=== PATIENT | female | born 1970 | race Caucasian/White ===

== ENCOUNTER 2023-02-02 17:08 | Inpatient (IN) | payer OTHER, SELFPAY ==
[2023-02-02] MEDS: diphenhydrAMINE HCL 50 MG/ML VIAL IM (17:25)
[2023-02-02] MEDS: LORazepam 2 MG/ML VIAL IM (17:25)
[2023-02-02] MEDS: Haloperidol Lactate 5 MG/ML VIAL IM (17:25)
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
[2023-02-02 17:28] VITALS: BP 128/94; PULSE 130; O2SAT 97; BMI 24.2
--- NOTE | 2023-02-02 17:30 | PC.NURSE ---
patient uncooperative at the time of arrival. Ed provider at the bedside. ordered IM medication.
[2023-02-02 18:00] VITALS: BP 121/69; PULSE 103; RESP 18; TEMP 37.1; O2SAT 97
--- NOTE | 2023-02-02 18:13 | PC.NURSE ---
patient now cooperative with staff. VSS. will CTM
[2023-02-02 18:23] LABS: MANUAL DIFF FLAG NO
[2023-02-02 18:41] LABS: Basophils Percent Auto 0.4 % (0-2); Eosinophils Percent Auto 0.3 % (0-4); Hematocrit 42.3 % (37.0-47.0); Imm Gran Abs Auto 0.03 X10*3/uL (0.00-0.03); Imm Gran Pct Auto 0.3 % (0.0-0.4); Lymphocytes Absolute Auto 2.1 X10*3/uL (1.2-4.9); Lymphocytes Percent Auto 22.8 % (20-40); Mean Corpuscular HGB Conc 33.1 g/dl (31.0-35.0); Mean Corpuscular Volume 93.6 fL (80.0-98.0); Mean Platelet Volume 10.3 fL (9.4-12.3); Monocytes Absolute Auto 0.8 X10*3/uL (0.1-1.2); Monocytes Percent Auto 8.9 % (2-11); Neutrophils Absolute Auto 6.3 x10*3/uL (2.0-8.3); Neutrophils Percent Auto 67.3 % (45-73); Platelet Count 264 X10*3/uL (160-400); Red Blood Count 4.52 X10*6/uL (4.20-5.50); Red Cell Distribution Width 13.2 % (11.0-16.0); White Blood Count 9.3 X10*3/uL (4.8-10.8)
[2023-02-02 18:48] LABS: COVID-19 Test Negative (Negative); IDNOW Serial# BCCEAD1C
[2023-02-02 19:02] LABS: Alanine Aminotransferase 23 U/L (0-31); Albumin Level 4.2 g/dL (3.5-5.0); Alkaline Phosphatase 50 U/L (39-117); Anion Gap 16 (12-20); Aspartate Amino Transferase 23 U/L (5-31); Bilirubin Total 0.2 mg/dL (0.0-1.0); Blood Urea Nitrogen 6 mg/dL (9-16); Calcium 9.2 mg/dL (8.4-10.2); Carbon Dioxide 22 mmol/L (22-29); Chloride 107 mmol/L (96-108); Estimated Glomerular Filt Rate > 60; Ethanol 44 mg/dL; Glucose Random 115 mg/dL (60-115); Potassium 3.9 mmol/L (3.3-5.1); Sodium 141 mmol/L (135-145); Total Protein 6.2 g/dL (6.5-8.0)
--- NOTE | 2023-02-03 06:03 | PC.NURSE ---
Patient slept through evening an night, patient S/P restraint with + effect, no distress observed/reported, med rec completed/patient is not on any home medication, asymptomatic of ETOH withdrawal at this time, PRN ativan 2 mg Q 2 hrs available for withdrawal, care team pending evaluation, pending urine sample, will continue to monitor.
[2023-02-03 06:28] LABS: Appearance Urine Clear; Color Urine Yellow; Glucose Urine UA Negative (Negative); Leukocyte Esterase Urine Small (1+) (Negative); Nitrite Urine Negative (Negative); PH 5.5 (5.0-9.0); Specific Gravity - Urine 1.015 (1.005-1.025); UMIC TRIGGER UA YES; Urine Blood Negative (Negative); Urine Ketones Negative (Negative); Urine Protein Negative (Neg-Trace)
[2023-02-03 06:32] VITALS: BP 137/67; PULSE 100; RESP 16; TEMP 36.3; O2SAT 99
[2023-02-03 06:38] LABS: Amphetamine Screen Urine Not Detected (Not Detect); Barbiturates, Urine Not Detected (Not Detect); Benzodiazepines Screen Urine Not Detected (Not Detect); Cannabinoid Screen Urine POSITIVE (Not Detect); Cocaine Screen Urine Not Detected (Not Detect); Fentanyl, urine Not Detected (Not Detect); Opiate Screen Urine Not Detected (Not Detect); Phencyclidine Screen Urine Not Detected (Not Detect)
[2023-02-03 06:40] LABS: Bacteria Urine Trace (None Seen); RBC Urine 0-2 /HPF (0-2); WBC Urine 0-5 /HPF (0-5)
--- NOTE | 2023-02-03 14:02 | ECG_ITS ---
Test Reason : MED CLEARENCE Blood Pressure : / mmHG Vent. Rate : 090 BPM Atrial Rate : 090 BPM P-R Int : 138 ms QRS Dur : 082 ms QT Int : 356 ms P-R-T Axes : 039 064 017 degrees QTc Int : 435 ms Normal sinus rhythm Normal ECG No previous ECGs available Referred By: Allen Morales Electronically Signed By:Cornelio Sam
[2023-02-03 14:11] VITALS: BP 131/76; PULSE 91; RESP 16; O2SAT 97
[2023-02-03 21:48] VITALS: BMI 23.1
[2023-02-03 22:14] VITALS: BP 122/62; PULSE 83; RESP 16; TEMP 36.6; O2SAT 97
--- NOTE | 2023-02-03 22:17 | PC.ADMIT ---
Leti was admitted to at 1914 via WC from ED, CV signed. Psychiatric diagnosis unspecified bipolar and related disorder with current depressive episode, [facility] goals are safety, mood stabilization, medication management,and discharge plan to link with community provider. No significant medical diagnosis. Covid test negative 02/02/23. Plan Of Care goals Unit tour, sharps/belongings check completed by counselor. Leti was cooperative with admission assessment. Alert/ oriented x 3. Denied current SI/HI/AVH. Currently verbalizes feeling safe on the unit, she verbalized that she is capable, able and willing to contact staff for assistance with any changes or thoughts of self harm/not feeling safe. She presents as hyperverbal and expansive, with disorganized, tangential thought processes. Denies sleep or appetite disturbance. Currently on every 2 hour CIWA, score has been 0 x 2. She request not to be awakened every 2 hours if she is asleep. Last drink was prior to admission, presented to ED BAL 44. Required medication restraint and physical hold while in the ED. Tox screen positive for cannabis. Leti is ad-alice with steady gait, independent with ADL's, declined HS Depakote stating she is not in need of a mood stabilizer. Requested and given 3 day notice to sign which is up for resolution on 02/07/23. Currently laying in bed in no acute distress. POC initiated, standard 15 min unit safety observation.
--- NOTE | 2023-02-04 00:22 | PC.NURSE ---
CIWA refusal-upon admission reported to assigned RN refusal to be woken up for assessment. observed sleeping at this time. respirations even and non labored. no distress noted.
--- NOTE | 2023-02-04 06:53 | PC.NURSE ---
0600 CIWA done at this tiime. refused VS but did allow for assessment and questions. score 1 patient stated ''i smoke a lot of weed, I'm not an alcoholic''
--- NOTE | 2023-02-04 08:12 | HO.PSYADMNOT ---
HPI Date of Service: 02/04/23 Chief Complaint: manic, aggressive Sources of Information: patient interviewed, chart reviewed and crisis/core team assessment reviewed HPI Subjective Notes: Beth Warning and Conditional Voluntary Medical Evaluation Reviewed: Yes Diagnostics Vital Signs (24Hr): Vital Signs - 24 hr 02/03/23 14:11 02/03/23 22:14 Temperature 97.9 F Pulse Rate 91 83 Respiratory Rate 16 16 Blood Pressure 131/76 122/62 Pulse Oximetry 97 97 Oxygen Delivery Method Room Air Room Air BMI result Body Mass Index 23.1 Labs 02/02/23 18:08 02/02/23 18:08 Labs: Laboratory Results - last 48 hr 02/02/23 02/02/23 02/02/23 18:08 18:08 18:10 WBC 9.3 RBC 4.52 Hgb 14.0 Hct 42.3 MCV 93.6 MCH 31.0 MCHC 33.1 RDW 13.2 Plt Count 264 MPV 10.3 Immature Gran % (Auto) 0.3 Neut % (Auto) 67.3 Lymph % (Auto) 22.8 [place] % (Auto) 8.9 Eos % (Auto) 0.3 Baso % (Auto) 0.4 Lymph # (Auto) 2.1 [place] # (Auto) 0.8 Eos # (Auto) 0.0 Baso # (Auto) 0.0 Abs Immat Gran (auto) 0.03 Absolute Neuts (auto) 6.3 Absolute Nucleated RBC 0.000 Nucleated RBC % (auto) 0.0 Sodium 141 Potassium 3.9 Chloride 107 Carbon Dioxide 22 Anion Gap 16 BUN 6 L Creatinine 0.81 Estim Creat Clear Calc 76.0 Estimated GFR > 60 Random Glucose 115 Calcium 9.2 Total Bilirubin 0.2 AST 23 ALT 23 Alkaline Phosphatase 50 Total Protein 6.2 L Albumin 4.2 Urine Color Urine Appearance Urine pH Ur Specific [place] Urine Protein Urine Glucose (UA) Urine Ketones Urine Blood Urine Nitrite Ur Leukocyte Esterase Urine RBC Urine WBC Ur Squamous Epith Cells Urine Bacteria Hyaline Casts Urine Opiates Screen Urine Fentanyl Screen Ur Barbiturates Screen Ur Phencyclidine Scrn Ur Amphetamines Screen U Benzodiazepines Scrn Urine Cocaine Screen U Marijuana (THC) Screen Ethyl Alcohol 44 COVID-19 ([facility]) Negative COVID-19 Clin Com See Note 02/03/23 02/03/23 06:22 06:22 WBC RBC Hgb Hct MCV MCH MCHC RDW Plt Count MPV Immature Gran % (Auto) Neut % (Auto) Lymph % (Auto) [place] % (Auto) Eos % (Auto) Baso % (Auto) Lymph # (Auto) [place] # (Auto) Eos # (Auto) Baso # (Auto) Abs Immat Gran (auto) Absolute Neuts (auto) Absolute Nucleated RBC Nucleated RBC % (auto) Sodium Potassium Chloride Carbon Dioxide Anion Gap BUN Creatinine Estim Creat Clear Calc Estimated GFR Random Glucose Calcium Total Bilirubin AST ALT Alkaline Phosphatase Total Protein Albumin Urine Color Yellow Urine Appearance Clear Urine pH 5.5 Ur Specific [place] 1.015 Urine Protein Negative Urine Glucose (UA) Negative Urine Ketones Negative Urine Blood Negative Urine Nitrite Negative Ur Leukocyte Esterase Small (1+) H Urine RBC 0-2 Urine WBC 0-5 Ur Squamous Epith Cells 3-5 Urine Bacteria Trace Hyaline Casts 3-5 Urine Opiates Screen Not Detected Urine Fentanyl Screen Not Detected Ur Barbiturates Screen Not Detected Ur Phencyclidine Scrn Not Detected Ur Amphetamines Screen Not Detected U Benzodiazepines Scrn Not Detected Urine Cocaine Screen Not Detected U Marijuana (THC) Screen POSITIVE H Ethyl Alcohol COVID-19 ([facility]) COVID-19 Clin Com Meds/Allergies Meds Home Medications Medication Instructions Recorded Confirmed Type No Known Home Meds 02/02/23 02/02/23 History Allergies Allergies Allergy/AdvReac Type Severity Reaction Status Date / Time No Known Allergies Allergy Verified 02/02/23 17:53 Assessment & Plan Statement Statement: I have reviewed the history and physical and performed a pertinent examination on my patient. No changes have occurred unless specified. If the History and Physical was not performed prior to admission, the Hospitalist's service will be consulted for completing the admission physical. Time Spent With Patient Time: Total time managing care of this patient today ____ minutes.
[2023-02-04 09:12] VITALS: BP 138/63; PULSE 93; RESP 16; TEMP 36.9; O2SAT 97
[2023-02-04] MEDS: Folic Acid 1 MG TABLET PO (09:14)
[2023-02-04] MEDS: Multivitamin TABLET 1 TAB PO (09:14)
[2023-02-04] MEDS: Thiamine HCL 100 MG TABLET PO (09:14)
[2023-02-04 10:30] VITALS: BP 147/78; PULSE 93; RESP 18; TEMP 36.6; O2SAT 97
[2023-02-04 12:11] VITALS: BP 131/72; PULSE 88; RESP 16; TEMP 36.6; O2SAT 97
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
[2023-02-04 16:13] VITALS: BP 143/79; PULSE 94; RESP 18; TEMP 36.6; O2SAT 97
[2023-02-04 20:00] VITALS: BP 129/68; PULSE 83; RESP 16; TEMP 36.7; O2SAT 96
[2023-02-05 08:36] VITALS: BP 113/56; PULSE 98; RESP 16; TEMP 36.9; O2SAT 96
--- NOTE | 2023-03-17 13:41 | P.DS_ITS ---
DS: Providers Provider Date of Service: 02/05/23 Date of admission: 02/03/23 18:30 Date of discharge: 02/05/23 Primary care physician: Abhijit Hand MD DS: Diagnosis Discharge Diagnosis (1) Alcohol use disorder: Status: Deleted (2) Unspecified mood [affective] disorder: Status: Acute DS: Medications Discharge Medications Home Medications: Previous Rx's Medication Instructions Recorded divalproex 500 mg tablet,extended 500 mg PO DAILY #30 tabs 02/05/23 release 24 hr folic acid 1 mg tablet 1 mg PO DAILY #30 tabs 02/05/23 multivitamin (Daily-Jj tablet) 1 tab PO DAILY #30 tabs 02/05/23 thiamine mononitrate (vit B1) 100 100 mg PO DAILY #30 tabs 02/05/23 mg tablet Mental Status Exam Mental Status Exam Narrative: calm, cooperative. adequately dressed and groomed. no PMA/PMR. speech incr in rate and amount. nml tone, loudness. decr latency. thoughts wandering and over-inclusive, but generally linear and logical. affect full range, hyperintense, non-labile. mood i wanna go home. denies SI/SIBI/HI/AVH. DS: Summary Hospital Course Hospital Course: Subjective Notes: Beth Warning (given and shows understanding) and Conditional Voluntary Narrative: Ms. Chaney is a 38 year-old woman with hx of cocaine, opioid use, alcohol use who was found unresponsive in parking lot, given narcan 8mg with good effect. In the ED, pt reported she had intentionally OD on opioids to end her life. Utox was positive for cocaine and THC. Opiods were negative but fentanyl was not checked. On the unit, pt presents as irritable.Pt reports episodes of loose stool and not feeling physically well. Pt is not forthcoming as to ongoing use of opioids and s/s of opioid withdrawal symptoms. Pt denies suicidal or homicidal ideation. She denies VH/AH. She does present as labile and at times difficult to engage. Pt reports she needs to rest and will discuss further treatment options another day. Past Psychiatric History: Inpatient: hx of inpt admission but unclear last one. OP: none Past medication trials: seroquel Medical Evaluation Reviewed: Yes HOSPITAL COURSE On the unit, pt was admitted on a CV and placed on 15 minutes checks for safety. Pt denied suicidal or homicidal ideation. She did report explosive behaviors when intoxicated with alcohol. However, showed limited insight as to need for treatment of alcohol use. Pt was assigned to the care of Dr. George. After discussing risks, benefits and alternative treatment options, pt declined medications for mood or to decrease alcohol use. She did agree to be referred to psychiatric outpatient services. Given that pt did not present with imminent harm to self or others nor gravely disable due to psychosis or delusions, pt's wished to be discharged with follow up appointments for psychiatric treatment were honored. Pt informed of substance use tx programs should she changes her mind. There were no incidences of disruptive behaviors nor need for restraints. Status at Discharge Cognitive/behavioral status at discharge: Pt with bright affect. No SI/HI. No VH/AH. Future oriented. No delusional content noted or reported. Pt sleeping and eating well. no signs of aggression towards self or others. Functional status at discharge: independent ambulation Overall status at discharge: patient is progressing back to baseline Time Spent with Patient Time attestation: Total time managing care of this patient today ____ minutes. Discharge Plan Discharge Anticipated Discharge Date/Time: 02/05/23 12:31 Patient Disposition: Home, Self-Care Discharge Diagnosis: Mood Disorder Referrals: [facility] [Outside] - 1 Week ([facility] will contact patient directly with appointments as it was a last minute discharge.) Abhijit Hand MD [Primary Care Provider] - 1 Week (Pt denied to have PCP notified) Discharge Medications: New multivitamin [Daily-Jj] Tablet 1 tab PO DAILY Qty: 30 0RF divalproex 500 mg Tablet Extended Release 24 Hr 500 mg PO DAILY Qty: 30 0RF folic acid 1 mg Tablet 1 mg PO DAILY Qty: 30 0RF thiamine mononitrate (vit B1) 100 mg Tablet 100 mg PO DAILY Qty: 30 0RF Discharge Orders: Discharge Order (Routine); Ordered 02/05/23 Ordered By: Steffi Ness Diet: Regular diet Activity on Discharge: As tolerated Stand Alone Forms: Patient Portal Discharge page, Community Support Care Plan Goals: 1. Maintain mood 2. No SI/HI 3. No aggression towards self or others. Health Concerns: Follow up with PCP Plan of Treatment: 1. Take medications as prescribed. 2. Go to nearest ED or call 911 in event of emergency Assessment: Pt with brighter, non labile affect. No SI/HI. Sleeping and eating. No signs of aggression towards self or others. Discharge Date/Time: 02/05/23 12:56
== END 2023-02-05 12:56 | disposition home or self-care (01) | DRG 753 ==
LOC: HO.ED 02-03 07:59 → HO.PADLT16 02-03 18:57
PROVIDERS: Nurse Practitioner Family; Admitting Provider Psychiatry & Neurology Psychiatry; Emergency Provider Emergency Medicine Emergency Medical Services; PCP Internal Medicine; Visit Provider Psychiatry & Neurology Psychiatry
DX: F39 Unspecified mood [affective] disorder (principal); R45.851 Suicidal ideations; Y90.2 Blood alcohol level of 40-59 mg/100 ml; F10.10 Alcohol abuse, uncomplicated; Z20.822 Contact with and (suspected) exposure to COVID-19; Z87.891 Personal history of nicotine dependence; Z79.899 Other long term (current) drug therapy
CPT/HCPCS: 36415; 80053; 80307; 81001; 82077; 85025; 87635; 93005; 99285; J1200; J2060; S9485